=== PATIENT | female | born 1985 | race Caucasian/White ===

== ENCOUNTER 2018-07-16 12:45 | Inpatient (IN) | payer OTHER ==
[~2018-07-16] VITALS: Ht 165.1 cm; Wt 72.6 kg
[2018-07-16 12:57] VITALS: Ht 165.1 cm; Wt 72.6 kg
[2018-07-16 13:53] LABS: RED CELL DISTRIBUTION WIDTH 14.4 % (11.5-14.5)
[2018-07-16 13:58] LABS: PLATELET COUNT 76 x10^3mcL (130-400)
[2018-07-16 14:05] LABS: CALCIUM 8.9 mg/dL (8.5-10.1); CARBON DIOXIDE 36.9 mmol/L (21-32); CHLORIDE SERUM 77 mmol/L (98-107); CREATININE SERUM 0.7 mg/dL (0.6-1.0); GFR1 > 60 mL/min; GLUCOSE SERUM 114 mg/dL (74-106); POTASSIUM SERUM 3.1 mmol/L (3.5-5.1); SODIUM SERUM 126 mmol/L (136-145)
[2018-07-16 14:14] LABS: ALBUMIN 4.3 g/dL (3.4-5.0); ALKALINE PHOSPHATASE 79 U/L (46-116); ALT/SGPT 74 U/L (14-59); AST/SGOT 147 U/L (15-37); BILIRUBIN TOTAL 2.22 mg/dL (0.20-1.00); FREE T4 0.73 ng/dL (0.76-1.46)
[2018-07-16 14:32] LABS: TOTAL PROTEIN, SERUM 8.5 g/dL (6.4-8.2)
[2018-07-16 14:34] LABS: microscopic required? YES; urine erythrocyte 1+ (NEGATIVE)
[2018-07-16 14:48] LABS: AMPHETAMINE QUAL UR NONE DETECTED (See below)
[2018-07-16 14:50] LABS: BAND NEUTROPHIL 5 % (0-10); BASOPHIL 0 % (0-2); MONOCYTE 8 % (0-7); SEGMENTED NEUTROPHILS 54 % (37-75)
[2018-07-16 14:51] LABS: PLATELET MORPHOLOGY PLATELETS DECREASED; rbc morphology (normal/abnorm) NORMAL (NORMAL)
[2018-07-16 16:42] LABS: MAGNESIUM 2.3 mg/dL (1.8-2.4); PHOSPHOROUS 3.6 mg/dL (2.5-4.9)
[2018-07-16 16:48] LABS: CHOLESTEROL/HDL RATIO 3.4
[2018-07-16 18:17] VITALS: BP 110/68
[2018-07-16 21:11] VITALS: BP 103/51
[2018-07-17 06:00] VITALS: BP 107/61
[2018-07-17 06:44] LABS: CALCIUM 8.5 mg/dL (8.5-10.1); CARBON DIOXIDE 31.6 mmol/L (21-32); CHLORIDE SERUM 90 mmol/L (98-107); CREATININE SERUM 0.8 mg/dL (0.6-1.0); GFR1 > 60 mL/min; GLUCOSE SERUM 88 mg/dL (74-106); MAGNESIUM 2.5 mg/dL (1.8-2.4); PHOSPHOROUS 2.6 mg/dL (2.5-4.9); POTASSIUM SERUM 3.4 mmol/L (3.5-5.1); SODIUM SERUM 132 mmol/L (136-145)
[2018-07-17 07:37] LABS: BASOPHIL % 0.3 % (0-2)
[2018-07-17 07:38] LABS: PLATELET COUNT 58 x10^3mcL (130-400); RED CELL DISTRIBUTION WIDTH 14.9 % (11.5-14.5)
[2018-07-17 10:26] VITALS: BP 108/42; BP 121/85
[2018-07-17 12:15] VITALS: BP 121/86
[2018-07-17 17:35] VITALS: BP 120/89
[2018-07-17 19:20] VITALS: BP 111/77
[2018-07-18 05:30] VITALS: BP 118/85
[2018-07-18 06:56] LABS: BASOPHIL % 0.5 % (0-2); RED CELL DISTRIBUTION WIDTH 14.3 % (11.5-14.5)
[2018-07-18 07:18] LABS: CALCIUM 8.6 mg/dL (8.5-10.1); CHLORIDE SERUM 98 mmol/L (98-107); CREATININE SERUM 0.6 mg/dL (0.6-1.0); GFR1 > 60 mL/min; GLUCOSE SERUM 103 mg/dL (74-106); PHOSPHOROUS 3.2 mg/dL (2.5-4.9); POTASSIUM SERUM 3.7 mmol/L (3.5-5.1); SODIUM SERUM 134 mmol/L (136-145)
[2018-07-18 08:18] VITALS: BP 109/81
[2018-07-18 08:44] LABS: PLATELET COUNT 53 x10^3mcL (130-400)
[2018-07-18 12:47] VITALS: BP 118/88
[2018-07-18 16:08] VITALS: BP 116/84
[2018-07-18 20:58] VITALS: BP 142/94
[2018-07-19 05:40] VITALS: BP 120/86
[2018-07-19 06:16] LABS: CALCIUM 9.7 mg/dL (8.5-10.1); CARBON DIOXIDE 28.4 mmol/L (21-32); CHLORIDE SERUM 101 mmol/L (98-107); CREATININE SERUM 0.6 mg/dL (0.6-1.0); GFR1 > 60 mL/min; GLUCOSE SERUM 103 mg/dL (74-106); POTASSIUM SERUM 4.7 mmol/L (3.5-5.1); SODIUM SERUM 136 mmol/L (136-145)
[2018-07-19 07:21] LABS: PLATELET COUNT 71 x10^3mcL (130-400); RED CELL DISTRIBUTION WIDTH 14.3 % (11.5-14.5)
[2018-07-19 07:50] VITALS: BP 122/87
[2018-07-19 10:26] VITALS: BP 122/87
== END 2018-07-19 12:13 | disposition home or self-care (01) | DRG 280 ==
LOC: ED 12:45 → DU 15:37
PROVIDERS: Emergency Medicine; ADMIT Internal Medicine
DX: K70.10 Alcoholic hepatitis without ascites (principal); K70.30 Alcoholic cirrhosis of liver without ascites; N17.0 Acute kidney failure with tubular necrosis; G92 Toxic encephalopathy; I45.81 Long QT syndrome; E87.1 Hypo-osmolality and hyponatremia; Y90.0 Blood alcohol level of less than 20 mg/100 ml; E87.6 Hypokalemia; R74.0 Nonspecific elevation of levels of transaminase and lactic acid dehydrogenase [LDH]; E78.5 Hyperlipidemia, unspecified; F41.9 Anxiety disorder, unspecified; F10.229 Alcohol dependence with intoxication, unspecified; F10.239 Alcohol dependence with withdrawal, unspecified; F32.9 Major depressive disorder, single episode, unspecified; D72.819 Decreased white blood cell count, unspecified; F12.10 Cannabis abuse, uncomplicated; Z68.26 Body mass index [BMI] 26.0-26.9, adult; Z90.49 Acquired absence of other specified parts of digestive tract; Z83.3 Family history of diabetes mellitus; Z79.899 Other long term (current) drug therapy
CPT/HCPCS: 84439; 87804; G0480; J2060; J2405; J3411; J3475; J3490; J7030

== ENCOUNTER 2018-12-24 09:33 | Emergency (ER) | payer OTHER ==
[~2018-12-24] VITALS: Ht 170.2 cm; Wt 77.1 kg
[2018-12-24 10:46] LABS: ALBUMIN 4.8 g/dL (3.4-5.0); ALKALINE PHOSPHATASE 89 U/L (46-116); ALT/SGPT 97 U/L (14-59); AST/SGOT 116 U/L (15-37); BILIRUBIN TOTAL 1.1 mg/dL (0.20-1.00); CALCIUM 9.6 mg/dL (8.5-10.1); CARBON DIOXIDE 37.7 mmol/L (21-32); CHLORIDE SERUM 90 mmol/L (98-107); CREATININE SERUM 0.9 mg/dL (0.6-1.0); GFR1 > 60 mL/min; GLUCOSE SERUM 142 mg/dL (74-106); SODIUM SERUM 137 mmol/L (136-145)
[2018-12-24 10:53] LABS: POTASSIUM SERUM 2.8 mmol/L (3.5-5.1); TOTAL PROTEIN, SERUM 9.6 g/dL (6.4-8.2)
[2018-12-24 10:54] LABS: BASOPHIL % 0.3 % (0-2); PLATELET COUNT 175 x10^3mcL (130-400); RED CELL DISTRIBUTION WIDTH 15.4 % (11.5-14.5)
[2018-12-24 13:04] LABS: UA SPECIFIC GRAVITY 1.015 (1.005-1.035); microscopic required? YES; urine erythrocyte 1+ (NEGATIVE)
[2018-12-24 18:20] VITALS: BP 134/90
== END 2018-12-24 18:20 | disposition home or self-care (01) ==
LOC: ED 09:33
PROVIDERS: Emergency Medicine
DX: F41.9 Anxiety disorder, unspecified (principal); F10.239 Alcohol dependence with withdrawal, unspecified; E87.6 Hypokalemia; F32.9 Major depressive disorder, single episode, unspecified; R11.0 Nausea; Y90.0 Blood alcohol level of less than 20 mg/100 ml
CPT/HCPCS: G0480; J2060; J3480; J7030